=== PATIENT | female | born 1985 ===

== ENCOUNTER 2017-06-06 09:25 | Inpatient (IN) | payer OTHER ==
[2017-06-06] MEDS ORDERED: Lactated Ringer's 1,000 ML IV SCH (10:30)
[2017-06-06 10:58] LABS: BASO # 0.1 K/uL (0.0-0.2); BASO % 0.7 % (0.0-2.0); EOS # 0.2 K/uL (0.0-0.7); EOS % 1.8 % (0.0-4.0); HEMATOCRIT 35.7 % (34.0-47.0); LYMPH % 22.9 % (20.0-40.0); MEAN CELL VOLUME 86.3 fL (81.0-99.0); MEAN CORPUSCULAR HEMOGLOBIN 28.3 pg (27.0-31.0); MEAN CORPUSCULAR HGB CONC 32.9 g/dL (33.0-37.0); MEAN PLATELET VOLUME 10.7 fL (7.2-11.7); MONO # 0.6 K/uL (0.0-0.8); MONO % 7.1 % (0.0-10.0); NRBC % 0.1 % (0.0-2.0); RED CELL DISTRIBUTION WIDTH 19.1 % (11.5-14.5); WHITE BLOOD COUNT 8.9 K/uL (4.8-10.8)
[2017-06-06] MEDS ORDERED: cefOXitin IV 2 gm in Dextrose 2 GM/50 ML BAG IVPB ONE (11:00)
[2017-06-06 11:07] LABS: CHLORIDE 103 mmol/L (98-107); POTASSIUM 4.1 mmol/L (3.6-5.2); SODIUM 135 mmol/L (132-148)
[2017-06-06 11:10] LABS: CARBON DIOXIDE 20 mmol/L (22-30); GFR AFRICAN-AMERICAN > 60
[2017-06-06 11:11] LABS: BLOOD UREA NITROGEN 7 mg/dL (7-17); CALCIUM 9.3 mg/dl (8.6-10.4); GLUCOSE,RANDOM 81 mg/dL (65-105)
--- NOTE | 2017-06-06 11:31 | OBHP ---
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: denies hx of fibroids, abnormal pap, sti PMY: anemia PSH: CxS FHX: denies SHX: dneies etoh/tobacco.drugs abuse MEDS: Folate, B12, iron, Prn NKDA A/P 32 @ 39.1 wks GA with previous ceseeacn section, pietro in learly labor for repea t cxs -admit to L+D -npo, ivf -admissin lab -cont toco adn efm -analgesi prn -antibtocs -labs plan as per Dr Freeman pcp Pelvic Type - PN: Adequate Extremities - PN: Normal Abdomen - PN: Normal Back - PN: Normal Breast - PN: Normal Lungs - PN: Normal Heart - PN: Normal Thyroid - PN: Normal Neurologic - PN: Normal HEENT - PN: Normal General - PN: Normal FHR - Baseline A Provider: 130 Membranes, Provider: Intact Contraction Comments Provider: q 5-7 min Gestation - Est Wks by US: 39.1 EGA AdmitDate IP: 39.1 Vital Signs Provider: Reviewed; Within Normal Limits IP Chief Complaint: Uterine contractions NICHD Variability Prov Fetus A: Moderate 6-25bpm NICHD Accel Fetus A IP Provider: [id number] FHR Category Provider Fetus A: Category I Dilatation, Provider: 2 Effacement, Provider: 50 Station, Provider: -3 Genitourinary Exam: Normal DTRs - PN: Normal
[2017-06-06] MEDS ORDERED: Morphine 1 mg/ml preservative-free Inj(Duramorph) ONE (11:45)
[2017-06-06] MEDS ORDERED: Midazolam 2 MG/2 ML VIAL ONE (12:41)
[2017-06-06] MEDS: cefOXitin IV 1 gm in Dextrose 1 GM/50 ML BAG IVPB SCH (21:19)
[2017-06-07] MEDS: cefOXitin IV 1 gm in Dextrose 1 GM/50 ML BAG IVPB SCH ×2 (05:09→12:09)
[2017-06-07] MEDS: Oxycodone/Acetaminophen 5/325 mg Tab PO PRN ×5 (05:21→22:46)
[2017-06-07 09:08] LABS: BASO # 0.1 K/uL (0.0-0.2); BASO % 0.6 % (0.0-2.0); EOS # 0.2 K/uL (0.0-0.7); EOS % 1.3 % (0.0-4.0); HEMATOCRIT 30.3 % (34.0-47.0); LYMPH # 2.1 K/uL (1.0-4.3); LYMPH % 15.8 % (20.0-40.0); MEAN CELL VOLUME 85.6 fL (81.0-99.0); MEAN CORPUSCULAR HEMOGLOBIN 28.5 pg (27.0-31.0); MEAN CORPUSCULAR HGB CONC 33.3 g/dL (33.0-37.0); MONO # 0.9 K/uL (0.0-0.8); MONO % 6.4 % (0.0-10.0); NRBC % 0.1 % (0.0-2.0); RED CELL DISTRIBUTION WIDTH 18.9 % (11.5-14.5)
[2017-06-07 09:10] LABS: WHITE BLOOD COUNT 13.5 K/uL (4.8-10.8)
[2017-06-07 09:15] LABS: CHLORIDE 101 mmol/L (98-107); POTASSIUM 4.2 mmol/L (3.6-5.2); SODIUM 134 mmol/L (132-148)
[2017-06-07 09:17] LABS: GFR AFRICAN-AMERICAN > 60
[2017-06-07 09:18] LABS: BLOOD UREA NITROGEN 8 mg/dL (7-17); CALCIUM 8.2 mg/dl (8.6-10.4); CARBON DIOXIDE 22 mmol/L (22-30); GLUCOSE,RANDOM 79 mg/dL (65-105)
[2017-06-07] MEDS: Simethicone 80 mg Chewtab PO PRN ×3 (09:22→22:52)
[2017-06-08] MEDS: Oxycodone/Acetaminophen 5/325 mg Tab PO PRN ×5 (04:06→22:53)
[2017-06-08] MEDS: Simethicone 80 mg Chewtab PO PRN ×4 (04:10→22:54)
[2017-06-08] MEDS: cefOXitin IV 1 gm in Dextrose 1 GM/50 ML BAG IVPB SCH (16:01)
--- NOTE | 2017-06-08 17:51 | OBPPN ---
Datetime: 06/08/2017 17:49 PP Pain Prov: Within normal limits PP Breasts Prov: Normal PP Heart Prov: Normal PP Lungs Prov: Normal PP Abdomen/Uterus Prov: Normal PP Lochia Prov: Normal PP Vulva/Perineum Prov: Normal PP CVA Tenderness Prov: Normal PP Extremities Prov: Normal PP C/S Incision Prov: Normal PP Progress Prov: Normal PP Impression Prov: Normal progression PP Plan Prov: Continue present management PP Progress Note Prov: POD #2 No C/ VS Stable Abdomen Soft Wound Clean P: Home in AM if stable Datetime: 06/07/2017 08:46 PP Nausea Prov: Denies PP Flatus Prov: Yes PP BM Prov: No
--- NOTE | 2017-06-08 17:54 | OBDCSUM ---
Datetime: 06/08/2017 17:52 Discharged to, Provider: Home Follow up at, Provider: Dr. Freeman Disch Instr Activity: Normal activity Disch Instr Diet: Regular Discharge Instructions, Provider: Routine instructions given Discharge Diagnosis, Provider: Term Delivered Follow up in weeks, Provider: RT in 2 weeks Disch Referrals: None Contraception discussed, Prov: Yes Discharge Comment, Provider: Home in AM if stable
[2017-06-09 00:04] VITALS: RESP 20
[2017-06-09] MEDS: Oxycodone/Acetaminophen 5/325 mg Tab PO PRN ×2 (03:16→09:03)
[2017-06-09] MEDS: Simethicone 80 mg Chewtab PO PRN (09:00)
[2017-06-09] MEDS ORDERED: Influenza Virus Vaccine 45 mcg/0.5 ml Syr (36 months - 7 yrs) IM ONE (10:03)
[2017-06-09] MEDS ORDERED: Influenza Vaccine 60 mcg/0.5 mL SYR (4YR UP) IM ONE (10:12)
[2017-06-09] MEDS ORDERED: Oxycodone/Acetaminophen 5/325 mg Tab PO PRN (14:38)
[2017-06-09 22:13] VITALS: BP 122/75; PULSE 74; TEMP 98.2; O2SAT 98
--- NOTE | 2017-06-12 03:53 | OP ---
PROCEDURE DATE: 06/06/2017 NATURE OF OPERATION: Repeat section. ATTENDING SURGEON: Dr. Baljeet Freeman. CAR REPOSSESSOR: Dr. Juliano Baumann. PATTERN MOLDER: Dr. Barragan. TYPE OF ANESTHESIA: Spinal. PREOPERATIVE DIAGNOSES: A 39 to 40 weeks , previous section. POSTOPERATIVE DIAGNOSES: Live female. 9 and 9, 6 pounds 4 ounces, vertex. DESCRIPTION OF PROCEDURE: The patient was placed in supine position after spinal anesthesia. The abdomen was prepped and draped for Pfannenstiel incision. A Pfannenstiel incision was made between the symphysis pubis and the umbilicus and was carried down to rectus fascia. The fascia was cleaned and incised the length of the incision. The recti were retracted laterally. The transversalis fascia identified and mobilized superiorly. The peritoneum was then incised the length of the incision. The vesicouterine fold of the visceral peritoneum was identified, incised transversely between the round ligaments. The bladder flap was developed, mobilized inferiorly by blunt dissection. A transverse incision was made into the anterior wall of the lower uterine segment and extended laterally toward the round ligament. Membranes were incised and the amniotic fluid was cleared. The patient was delivered from the OT position of a living female infant in good condition at exactly 12:22 p.m. on 06/06/2017, 9 and 9, presenting part was floating, placenta was on the posterior wall near the fundus. Membrane and placenta were completely removed manually. The uterus was closed in two layers with continuous suture of chromic #1 gut, first layer including myometrium, second layer imbricating the myometrium. The bladder flap was reattached with continuous suture of chromic #2-0 catgut on an atraumatic needle. The uterus was well contracted. Tubes and ovaries were normal. Hemostasis was satisfactory. Lap and sponge count was reported as correct. Abdomen was closed in layers. Peritoneum continuous suture of chromic #0 catgut on an atraumatic needle, fascia running interlocking sutures of 0 Vicryl. Subcutaneous tissue was closed with #2-0 catgut and skin was closed with the tanisha and the patient tolerated the procedure well and was sent to the recovery room in satisfactory condition. Baljeet Freeman MD [facility] # [id number]
--- NOTE | 2017-06-28 17:41 | OBDS ---
DELIVERY PERSONNEL Delivery Doctor: Trever Freeman MD Spa Consultant: Ling Mosqueda RN Anesthesiologist: Dr. Clayton MATERNAL INFORMATION Delivery Anesthesia: Spinal Estimated Blood Loss (ml): 300 Placenta Cultured: No Maternal Complications: None Provider Comments: Un-eventful LABOR SUMMARY EDC: 06/12/2017 00:00 No. Babies in Womb: 1 Attempted: No Labor Anesthesia: None LABOR INFORMATION Group B Beta Strep: Negative Antibiotics # of Doses: 1 Antibiotics Time of Last Dose: 1143 MEMBRANES Membranes Rupture Method: Artificial Rupture of Membranes: 06/06/2017 12:21 Length of Rupture (hrs): 0.02 Amniotic Fluid Color: Clear Amniotic Fluid Amount: Moderate Amniotic Fluid Odor: Normal STAGES OF LABOR Stage 3 hrs: 0 Stage 3 min: 2 CSECTION DELIVERY Primary Indication: Repeat Elective CSection Urgency: Elective CSection Incidence: Repeat Labor: N/A Elective: N/A CSection Incision: Lower Uterine Transverse BABY A INFORMATION Delivery Date/Time: 06/06/2017 12:22 Method of Delivery: Born in Route : No : N/A Forceps: N/A Vacuum Extraction: N/A Shoulder Dystocia : No SHOULDER DYSTOCIA BABY A Delivery Date/Time: 06/06/2017 12:22 PRESENTATION/POSITION BABY A Presentation: Cephalic Cephalic Presentation: Vertex Vertex Position: Left Occipital Anterior Breech Presentation: N/A PLACENTA INFORMATION BABY A Placenta Delivery Time : 06/06/2017 12:24 Placenta Method of Delivery: Manual Removal Placenta Status: Delivered SCORES BABY A Heart Rate 1 min: >100 bpm Resp Effort 1 min: Good Cry Reflex Irritability 1 min: Cough or Sneeze or Pulls Away Muscle Tone 1 min: Active Motion Color 1 min: Body [place], Extremities Blue Resuscitation Effort 1 min: Tactile Stimulation; Oxygen SCORE 1 MIN: 9 Heart Rate 5 min: >100 bpm Resp Effort 5 min: Good Cry Reflex Irritability 5 min: Cough or Sneeze or Pulls Away Muscle Tone 5 min: Active Motion Color 5 min: Body [place], Extremities Blue SCORE 5 MIN: 9 INFANT INFORMATION BABY A Gestational Age at Delivery: 39.1 Gestational Status: Term Infant Outcome : Liveborn Condition : Stable Sex: Female IDENTIFICATION/MEDS BABY A ID Band Number: [id number] ID Band Location: Left Leg; Left Arm Sensor Applied: Yes Sensor Number: [id number] Sensor Location : Cord Clamp Vitamin K Given : Not Given Erythromycin Given: Not Given WEIGHT/LENGTH BABY A Birthweight (gms): 2845 Infant Weight (lb): 6 Infant Weight (oz): 4 Infant Length Inches: 19.00 Infant Length cms: 48.3 CORD INFORMATION BABY A No. Cord Vessels: 3 Nuchal Cord : N/A True Knot: N/A Cord Blood Taken: Yes Suction: Mouth; Nose ASSESSMENT BABY A Infant Complications: None Physical Findings at Delivery: Within Normal Limits Respirations: Appears Normal Infant Care By: Len Price RN/Dr. Knox Transferred To: Remains with Mother
== END 2017-06-09 17:45 | disposition home or self-care (01) | DRG 766 ==
LOC: C.4D 09:25 → C.4M 16:30
PROVIDERS: ADMIT Obstetrics & Gynecology Gynecology; ATTEND Obstetrics & Gynecology Gynecology
PROC: 10D00Z1 Extraction of Products of Conception, Low, Open Approach (ICD-10-PCS; principal; 2017-06-06)
DX: O34.211 Maternal care for low transverse scar from previous cesarean delivery (principal); Z37.0 Single live birth; Z3A.39 39 weeks gestation of pregnancy